=== PATIENT | female | born 1990 | race Native Hawaiian/Other Pacific Islander ===

== ENCOUNTER 2018-03-27 02:55 | Inpatient (IN) | payer MEDICAID ==
[2018-03-27 03:51] LABS: Basophils # (Auto) 0.1 K/mm3 (0.0-0.1); Basophils % (Auto) 0.5 % (0.0-1.8); Eosinophils # (Auto) 0.1 K/mm3 (0.0-0.4); Eosinophils % (Auto) 0.6 % (0.0-4.3); Hematocrit 32.7 % (30.3-42.9); Hemoglobin 10.6 gm/dl (10.1-14.3); Lymphocytes # (Auto) 1.1 K/mm3 (1.2-5.4); Lymphocytes % (Auto) 10.1 % (13.4-35.0); Mean Corpuscular HGB Conc 32 % (30-34); Mean Corpuscular Hemoglobin 26 pg (28-32); Mean Corpuscular Volume 82 fl (79-97); Monocytes # (Auto) 0.7 K/mm3 (0.0-0.8); Monocytes % (Auto) 6.7 % (0.0-7.3); Platelet Count 192 K/mm3 (140-440); Red Cell Distribution Width 16.3 % (13.2-15.2)
[2018-03-27] MEDS ORDERED: BRETHINE SUB-Q PRN (03:51)
[2018-03-27] MEDS ORDERED: XYLOCAINE 2% INFILTRATI ONE (03:51)
[2018-03-27] MEDS ORDERED: ePHEDrine SULFATE IV PRN (03:51)
[2018-03-27] MEDS ORDERED: POLYCILLIN/NS 2 GM/100 ML 2 GM/100 ML BAG IV ONE (03:51)
[2018-03-27] MEDS ORDERED: BRETHINE IVP PRN (03:51)
[2018-03-27] MEDS ORDERED: PITOCin/NS 30 UNIT/500ML 30 UNITS/500 ML BAG IV SCH (04:00)
[2018-03-27] MEDS ORDERED: POLYCILLIN/NS 2 GM/100 ML 2 GM/100 ML BAG IV SCH (04:00)
[2018-03-27] MEDS ORDERED: LACTATED RINGERS 1,000 ML IV SCH (04:00)
--- NOTE | 2018-03-27 04:38 | History and Physical Report ---
History of Present Illness Date of examination: 03/27/18 Date of admission: 03/27/18 03:55 Chief complaint: Leaking water from vagina History of present illness: 27 year old female presents to L&D complaining of leaking of water from vagina since 02:00 today. Pt. reports contractions also beginning around 02:00. Pt. denies vaginal bleeding. Pt. reports active movement. LMP 07/03/17. EDC 04/09/18. Patient received care at [facility]. Pt. brings records with her but we are missing some of the labs (will draw here in L&D). GBS +. Elevated 1 hour sugar test during ; normal 3 hour OGTT. Past History Past Medical History: no pertinent history Past Surgical History: no surgical history [employer] History: denies: chlamydia, gonorrhea, herpes, HIV, syphilis, trichomonas Family/Genetic History: none Social history: lives with family, full code. denies: smoking, alcohol abuse, prescription drug abuse, IV drug use - Obstetrical History Expected Date of Delivery: 04/09/18 Actual Gestation: 38 Week(s) 1 Day(s) : 4 Para: 2 Hx # Term Pregnancies: 3 Number of Pregnancies: 0 Spontaneous Abortions: 0 Induced : 1 Number of Living Children: 2 Medications and Allergies Allergies Allergy/AdvReac Type Severity Reaction Status Date / Time No Known Allergies Allergy Verified 03/27/18 03:58 Active Meds: Active Medications Ephedrine Sulfate (Ephedrine Sulfate) 10 mg IV Q2M PRN PRN Reason: Hypotension Lactated Ringer's (Lactated Ringers) 1,000 mls @ 125 mls/hr IV DIRECT DANIEL Oxytocin/Sodium Chloride (Pitocin/Ns 20 Unit/1000ml Drip) 20 units in 1,000 mls @ 125 mls/hr IV DIRECT DANIEL Oxytocin/Sodium Chloride (Pitocin/Ns 30 Unit/500ml) 30 units in 500 mls @ 1 mls /hr IV TITR DANIEL; Protocol Ampicillin Sodium (Ampicillin/Ns 1 Gm/50 Ml) 1 gm in 50 mls @ 100 mls/hr IV Q4HR DANIEL; Protocol Ampicillin Sodium (Polycillin/Ns 2 Gm/100 Ml) 2 gm in 100 mls @ 100 mls/hr IV ONCE DANIEL; Protocol Terbutaline Sulfate (Brethine) 0.25 mg SUB-Q ONCE PRN PRN Reason: Hyperstimulation/Hypertonicity Terbutaline Sulfate (Brethine) 0.25 mg IVP ONCE PRN PRN Reason: Hyperstimulation/Hypertonicity Review of Systems All systems: negative (leaking of water from vagina and contractions) - Vital Signs Vital signs: Vital Signs Temp Pulse Resp BP 98.1 F 78 16 115/62 03/27/18 03:51 03/27/18 03:51 03/27/18 03:51 03/27/18 03:51 Temp Pulse Resp BP Pulse Ox 98.9 F 100 H 20 112/71 03/27/18 04:09 03/27/18 04:09 03/27/18 04:09 03/27/18 04:09 - Physical Exam Breasts: Positive: deferred Cardiovascular: Regular rate, Normal S1, Normal S2 Lungs: Positive: Clear to auscultation Abdomen: Positive: normal appearance, soft, other (gravid). Negative: distention, tenderness, guarding, rigidity Genitourinary (Female): Positive: normal external genitalia, other (no lesions seen on careful exam with bright light upon admission). Negative: perineal/ vulvar lesions Vagina: Positive: other (thin meconium stained fluid seen leaking from vagina, moderate amount) Cervix: Positive: other (4/60/-3) Uterus: Positive: enlarged Anus/Rectum: Positive: normal perianal skin Extremities: Positive: normal. Negative: tenderness, edema - Obstetrical FHR comments: Upon arrival/admission, FHR baseline 150 with minimal to moderate variability and occasional variable FHR deceleration and occasional late FHR deceleration. IV started and IV fluid bolus given. Pt. positioned in left lateral position and oxygen applied per face mask. FHR now 150 with moderate variability and FHR decelerations have resolved. Will observe closely. Uterine Contraction Monitor Mode: External Cervical Dilatation: 4 Cervical Effacement Percentage: 60 station: -3 Uterine Contraction Frequency (min): every 2-5 minutes Uterine Contraction Pattern: Irregular Uterine Contraction Intensity: Moderate Results Result Diagrams: 03/27/18 03:30 Abnormal lab results 03/27/18 Range/Units 03:30 MCH 26 L (28-32) pg RDW 16.3 H (13.2-15.2) % Lymph % (Auto) 10.1 L (13.4-35.0) % Lymph # 1.1 L (1.2-5.4) K/mm3 Seg Neutrophils % 82.1 H (40.0-70.0) % Seg Neutrophils # 8.9 H (1.8-7.7) K/mm3 All other labs normal. Assessment and Plan A: at 38 weeks, 1 day gestation. Group B strep positive. Spontaneous rupture of membranes with thin meconium stained fluid. Intermittent variable and late FHR deceleration (not recurrent). P: Admit. Ampicillin for GBS prophylaxis. Continuous EFM. Augmentation of labor if necessary. Lateral position, fluid bolus, O2. (Upon admission, positioned pt. in left lateral position. IV started and IV fluid bolus of LR given. O2 applied per face mask).
[2018-03-27 06:08] LABS: Hematocrit 33.2 % (30.3-42.9); Hemoglobin 10.7 gm/dl (10.1-14.3); Mean Corpuscular HGB Conc 32 % (30-34); Mean Corpuscular Hemoglobin 26 pg (28-32); Mean Corpuscular Volume 82 fl (79-97); Platelet Count 176 K/mm3 (140-440); Red Blood Count 4.07 M/mm3 (3.65-5.03); Red Cell Distribution Width 16.5 % (13.2-15.2)
[2018-03-27 06:43] LABS: Hepatitis C Virus Antibody Non-Reactive (NonReactive)
[2018-03-27 07:01] LABS: Rubella IgG Antibody 500 (Immune)
--- NOTE | 2018-03-27 07:05 | Event Note ---
Date: 03/27/18 Pt. reports pelvic pressure with contractions. SVE 7/100/0. FHR 150 with moderate variability and occasional brief variable FHR deceleration with rapid return to baseline. T 98.9. Contractions every 3 minutes, moderate to palpation. Uterus palpates soft between contractions. VSS.
[2018-03-27] MEDS ORDERED: AMPICILLIN/NS 1 GM/50 ML 1 GM/50 ML BAG IV SCH (08:00)
[2018-03-27] MEDS ORDERED: BENADRYL PO PRN (09:28)
[2018-03-27] MEDS ORDERED: PHENERGAN PO PRN (09:28)
[2018-03-27] MEDS ORDERED: ZOFRAN IV PRN (09:28)
[2018-03-27] MEDS ORDERED: PHENERGAN PR PRN (09:28)
[2018-03-27] MEDS ORDERED: NORCO 5/325 PO PRN (09:28)
[2018-03-27] MEDS ORDERED: DULCOLAX PR PRN (09:28)
[2018-03-27] MEDS ORDERED: TUCKS PAD TP PRN (09:28)
[2018-03-27] MEDS ORDERED: TYLENOL PO PRN (09:28)
[2018-03-27] MEDS ORDERED: MILK OF MAGNESIA PO PRN (09:28)
[2018-03-27] MEDS ORDERED: LANSINOH TP PRN (09:28)
[2018-03-27] MEDS: PITOCin/NS 20 UNIT/1000ML DRIP 20 UNITS/1,000 ML BAG IV SCH ×2 (09:50→10:29)
--- NOTE | 2018-03-27 09:55 | Procedure Note ---
OB Delivery Note - Vaginal Delivery presentation: vertex Delivery position: OA (rotated from direct OP to OA at time of ) Intrapartum events: meconium, shoulder dystocia Delivery induction: none Delivery monitor: external FHT, external uterine Route of delivery: Delivery placenta: spontaneous Delivery cord: 3 umbilical vessels Episiotomy: none Delivery laceration: none Anesthesia: none Delivery comments: Spontaneous vaginal delivery of liveborn female weighing 6 lb. 12 oz. over intact perineum at 08:20 with apgars of 8/9. No anesthesia. head presented direct OP, then rotated to OA at time of . Thin meconium stained amniotic fluid wiped from 's face as delivering. Turtle sign noted. Left anterior shoulder dystocia, resolved with delivery of posterior arm and McRobert 's maneuver. Body delivered easily after posterior arm was delivered. 3 vessel cord double clamped and cut and baby was taken to radiant warmer for suctioning by NICU team who were present at delivery. Spontaneous cry and respirations. Spontaneous delivery of intact placenta at 08:49 by Thompson mechanism; accessory lobe of placenta noted on placental inspection. Pitocin to IV fluids after delivery of placenta. EBL 400 ml. Fundus firm and midline. Vulva and perineum and vagina examined and no lacerations noted. Vaginal sweep negative. Sponge count correct. Mother and baby stable in birthing room.
[2018-03-27] MEDS ORDERED: SODIUM CHLORIDE FLUSH SYRINGE 10 ML IV NR (10:00)
[2018-03-27] MEDS: MOTRIN PO SCH ×2 (12:37→18:25)
[2018-03-27] MEDS: METHERGINE PO SCH ×2 (12:37→21:00)
[2018-03-27 20:39] LABS: Hematocrit 30.1 % (30.3-42.9); Hemoglobin 9.6 gm/dl (10.1-14.3)
[2018-03-28] MEDS: MOTRIN PO SCH ×2 (03:42→10:16)
[2018-03-28] MEDS: METHERGINE PO SCH ×2 (05:35→14:08)
--- NOTE | 2018-03-28 09:21 | Progress Note ---
Assessment and Plan - Patient Problems (1) Status post normal vaginal delivery Current Visit: Yes Status: Acute Plan to address problem: PPD 1 - stable Continue routine PP orders Discharge to home today F/U at [facility] in 6 weeks for PP exam (2) Anemia in puerperium, baby delivered during current episode of care Current Visit: Yes Status: Acute Plan to address problem: Asymptomatic Start iron therapy with ferrous sulfate 325mg PO qd Subjective - Subjective Date of service: 03/28/18 Principal diagnosis: s/p Patient reports: appetite normal, voiding normally, pain well controlled, ambulating normally [place]: doing well Objective - Vital Signs Latest vital signs: Vital Signs Temp Pulse Resp BP BP Pulse Ox 03/28/18 00:00 98.4 F 78 118/68 03/27/18 15:53 98.2 F 84 18 109/58 98 03/27/18 11:00 98.7 F 101 H 12 113/65 98 03/27/18 09:48 104 H 115/51 03/27/18 09:33 104 H 119/59 Intake and Output 03/27/18 03/28/18 03/28/18 23:59 07:59 15:59 Intake Total 360 240 Balance 360 240 Intake: Oral 240 240 Intake, Free Water 120 Other: Total, Intake Amount 240 240 # Voids Void 1 1 - Exam Abdomen: Present: normal appearance, soft Uterus: Present: normal, firm, fundal height at umbilicus Extremities: Present: normal - Labs Labs: Abnormal lab results 03/27/18 Range/Units 20:26 Hgb 9.6 L (10.1-14.3) gm/dl Hct 30.1 L (30.3-42.9) %
--- NOTE | 2018-03-28 09:25 | Discharge Summary ---
Providers - Providers Date of Admission: 03/27/18 03:55 Date of discharge: 03/28/18 Attending physician: OCTAVIO CASE MD Primary care physician: OCTAVIO CASE MD Hospitalization Reason for admission: active labor, IUP at term Delivery: Episiotomy: none Laceration: none Other procedures: none complications: none Discharge diagnosis: IUP at term delivered [place] baby: female Hospital course: Uncomplicated Condition at discharge: Stable Disposition: IA-01 TO HOME OR SELFCARE - Discharge Diagnoses (1) Status post normal vaginal delivery Status: Acute (2) Anemia in puerperium, baby delivered during current episode of care Status: Acute Comment: Asymptomatic Plan - Discharge Medications Prescriptions: Ferrous Sulfate [Feosol 325 MG tab] 325 mg PO QDAY #30 tablet - Provider Discharge Summary Activity: routine, no sex for 6 weeks, no heavy lifting 4 weeks, no strenuous exercise Diet: routine Instructions: routine Additional instructions: [] Smoking cessation referral if applicable(refer to patient education folder for contact #) [] Refer to [facility] Booklet Call your doctor immediately for: * Fever > 100.5 * Heavy vaginal bleeding ( >1 pad per hour) * Severe persistent headache * Shortness of breath * Reddened, hot, painful area to leg or breast * Drainage or odor from incision. * Keep incision clean and dry at all times and follow doctor's instructions regarding bathing/showering - Follow up plan Follow up: OCTAVIO CASE MD [Primary Care Provider] - 6 Weeks (Follow up at [facility] in 6 weeks for exam)
[2018-03-28] MEDS ORDERED: FEOSOL PO SCH (10:00)
[2018-03-28 16:50] VITALS: BP 102/63
== END 2018-03-28 17:30 | disposition home or self-care (01) | DRG 775 ==
LOC: TRG 02:55 → LD 03:55 → OB 10:57
PROVIDERS: ADMIT Obstetrics & Gynecology; ATTEND Obstetrics & Gynecology
PROC: 10E0XZZ Delivery of Products of Conception, External Approach (ICD-10-PCS; principal; 2018-03-27)
DX: O99.824 Streptococcus B carrier state complicating childbirth (principal); Z3A.38 38 weeks gestation of pregnancy; Z37.0 Single live birth; O90.81 Anemia of the puerperium; D64.9 Anemia, unspecified; O76 Abnormality in fetal heart rate and rhythm complicating labor and delivery; O77.0 Labor and delivery complicated by meconium in amniotic fluid; O64.0XX0 Obstructed labor due to incomplete rotation of fetal head, not applicable or unspecified; O66.0 Obstructed labor due to shoulder dystocia
CPT/HCPCS: 36415; 59025; 85014; 85018; 85025; 85027; 86592; 86706; 86762; 86803; 86850; 86900; 86901; 87591; 87806; 88307; 99211; G0463; J0290; J2590; J7120

== ENCOUNTER 2019-10-20 09:05 | Day surgery (SDC) | payer MEDICAID ==
[~2019-10-20 09:05] MED LIST: LACTATED RINGERS 1,000 ML IV SCH
[2019-10-20] MEDS ORDERED: BUPIVACAINE/PF (0.5%) 5 MG/1 ML 30 ML VIAL INFILTRATI ONE ×3 (09:47→12:31)
[2019-10-20] MEDS ORDERED: HYDROmorphone 1 MG/1 ML INJ IV PRN (11:13)
--- NOTE | 2019-10-20 11:16 | Anesthesia Consultation ---
Anesthesia Consult and Med Hx Date of service: 10/20/19 - Airway Anesthetic Teeth Evaluation: Good (broken top right upper tooth) ROM Head & Neck: Adequate Mental/Hyoid Distance: Adequate Mallampati Class: Class II Intubation Access Assessment: Probably Good - Pulmonary Exam CTA: Yes - Cardiac Exam Cardiac Exam: RRR - Pre-Operative Health Status ASA Pre-Surgery Classification: ASA1 Proposed Anesthetic Plan: General - Pulmonary Hx Smoking: No Hx Respiratory Symptoms: No - Cardiovascular System Hx Hypertension: No - Central Nervous System CVA: No - Gastrointestinal Hx Gastroesophageal Reflux Disease: No - Endocrine Hx Renal Disease: No Hx Liver Disease: No Hx Insulin Dependent Diabetes: No Hx Non-Insulin Dependent Diabetes: No Hx Thyroid Disease: No - Hematic Hx Anemia: Yes Hx Sickle Cell Disease: No - Other Systems Hx Alcohol Use: Yes (Occas) Hx Cancer: No
--- NOTE | 2019-10-20 11:17 | Anesthesia Day of Surgery ---
Anesthesia Day of Surgery - Day of Surgery Patient Examined: Yes Patient H&P Reviewed: Yes Patient is NPO: Yes
[2019-10-20] MEDS ORDERED: PROPOFOL 200 MG/20 ML VIAL IV ONE (11:23)
[2019-10-20] MEDS ORDERED: HYDROmorphone 1 MG/1 ML INJ ONE (11:23)
[2019-10-20] MEDS ORDERED: LIDOCAINE MPF (2%) 20 MG/1 ML VIAL 5 ML ONE (11:49)
[2019-10-20] MEDS ORDERED: ROCURONIUM 50 MG/5 ML INJ IV ONE (11:49)
[2019-10-20] MEDS ORDERED: SCOPOLAMINE TRANSDERMAL PATCH 72 HR TD NR (12:00)
[2019-10-20] MEDS ORDERED: MIDAZOLAM 2 MG/2 ML INJ IV NR (12:00)
[2019-10-20] MEDS ORDERED: GABAPENTIN 300 MG CAP PO NR (12:00)
[2019-10-20] MEDS ORDERED: CELECOXIB 200 MG CAP PO NR (12:00)
[2019-10-20] MEDS ORDERED: SODIUM CHLORIDE 0.9% 1000 ML IV SOLN IR ONE (12:24)
[2019-10-20] MEDS ORDERED: NEOSTIGMINE 10MG/10 ML INJ MDV ONE (12:35)
[2019-10-20] MEDS ORDERED: KETOROLAC 30 MG/1 ML INJ ONE (12:35)
[2019-10-20] MEDS ORDERED: ONDANSETRON 4 MG/2 ML INJ ONE (12:35)
[2019-10-20] MEDS ORDERED: GLYCOPYRROLATE 0.4 MG/2 ML INJ ONE (12:35)
--- NOTE | 2019-10-20 13:24 | Post Operative Note ---
Date of procedure: 10/20/19 Pre-op diagnosis: sterilization Post-op diagnosis: same Findings: Normal uterus, tubes and ovaries. General abd survery WNL Procedure: Lap BTL with Filschie clips Patient was taken operating room and prepped and draped in the usual fashion. Attention was first turned vaginally where the acorn uterine manipulator and Dunbar catheter were placed. Attention then turned abdominally within the umbilicus a 5 mm incision was made. Abdomen tented up and veress needle placed in the abdominal cavity. Abdomen appropriately insufflated with CO2 gas. There is needle removed and a 5 mm trocar was placed. Placement confirmed with the camera. Patient placed in Trendelenburg. Then in the midline suprapubic about 2 finger breaths superior to the pubic symphysis an 8 mm incision was made. The millimeter trocar was placed under direct visualization successfully and without difficulty. Attention was turned to the left fallopian tube where the Filshie clip was applied. Full width of the tube was captured in the Filshie clip. Good hemostasis noted afterwards. This was then done in the exact same fashion on the right side with equal success and good hemostasis. Abdomen was fully desufflated. The trochars were removed and the trocar sites were closed with 4- 0 Monocryl in a subcuticular fashion followed by Marcaine at each site. The acorn uterine manipulator was removed and the procedure was concluded. Patient tolerated the procedure well. Instrument and lap counts were correct. Patient taken to the recovery room in stable condition. Anesthesia: GETA Surgeon: JEFF MARIA Estimated blood loss: minimal Pathology: none Condition: stable Disposition: PACU
[2019-10-20 14:03] VITALS: BP 134/87
--- NOTE | 2019-10-20 15:41 | Post Anesthesia Evaluation ---
- Post Anesthesia Evaluation Patient Participated: Yes Airway Patent: Yes Stable Respiratory Function: Yes Nausea/Vomiting: No Temp > 96.8F: Yes Pain Manageable: Yes Adequeate Hydration: Yes Anesthesia Complications: No
== END 2019-10-20 14:35 | disposition home or self-care (01) ==
LOC: OR 09:05
PROVIDERS: ATTEND Obstetrics & Gynecology
DX: Z30.2 Encounter for sterilization (principal); Z87.891 Personal history of nicotine dependence; Z79.899 Other long term (current) drug therapy; Z72.89 Other problems related to lifestyle; Z98.890 Other specified postprocedural states; Z86.2 Personal history of diseases of the blood and blood-forming organs and certain disorders involving the immune mechanism
CPT/HCPCS: 58671; 81025; J1170; J1885; J2250; J2405; J2704; J2710; J7030; J7120